=== PATIENT | female | born 1975 | race Caucasian/White ===

== ENCOUNTER 2025-03-23 10:00 | Outpatient (CLI) | payer OTHER, SELFPAY ==
[2025-03-23 12:14] LABS: Basophils Absolute Auto 0.1 K/mm3 (0.0-0.1); Basophils Percent Auto 0.4 % (0.2-1.2); Eosinophils Absolute Auto 0.1 K/mm3 (0-0.3); Eosinophils Percent Auto 0.7 % (0-4.4); Hematocrit 43.5 % (37.0-47.0); Hemoglobin 14.3 g/dL (12.0-15.0); Immature Granulocyte Absolute 0.07 K/mm3 (0.00-0.031); Immature Granulocyte Percent A 0.5 % (0-0.5); Lymphocytes Absolute Auto 5.14 K/mm3 (0.9-3.2); Lymphocytes Percent Auto 38.1 % (18.3-44.2); Mean Corpuscular HGB Conc 32.9 g/dl (32-36); Mean Corpuscular Hemoglobin 30.5 pg (26-34); Mean Corpuscular Volume 92.8 fl (80-100); Mean Platelet Volume 11.6 fl (7.4-10.4); Monocytes Absolute Auto 0.8 K/mm3 (0.1-0.6); Monocytes Percent Auto 5.6 % (2.6-8.5); Neutrophils Absolute Auto 7.4 K/mm3 (1.3-6.7); Neutrophils Percent Auto 54.7 % (45.5-73.1); Platelet Count Result 273 k/mm3 (150-375); Red Blood Count 4.69 M/mm3 (4.2-5.4); Red Cell Distribution Width 13.8 % (11.5-14.5); White Blood Count 13.5 K/mm3 (4.5-10.0)
[2025-03-23 12:39] LABS: Alanine Aminotransferase 26 U/L (6-35); Albumin Level 4.5 g/dL (3.5-5.1); Alkaline Phosphatase 82 U/L (38-126); Anion Gap 8 mmol/L (4-12); Aspartate Amino Transferase 56 U/L (14-36); Bilirubin,Total 0.4 mg/dL (0.2-1.3); Blood Urea Nitrogen 14 mg/dL (7-17); Calcium 9.7 mg/dL (8.4-10.2); Carbon Dioxide 25 mmol/L (22-30); Chloride 107 mmol/L (98-107); Cholesterol 234 mg/dL (0-200); Estimated Glomerular Filt Rate > 60; Glucose 99 mg/dL (65-110); HDL Direct 49 mg/dL; Potassium 4.4 mmol/L (3.4-5.0); Sodium 140 mmol/L (137-145); Total Protein 7.7 g/dL (6.3-8.2); Triglycerides 145 mg/dL (<150)
[2025-03-23 12:50] LABS: LDL Cholesterol Direct 138 mg/dL
[2025-03-23 13:37] LABS: Hemoglobin A1C 5.6 % (<5.7)
== END 2025-03-23 10:01 | disposition home or self-care (01) ==
LOC: ANHGOSHLAB 10:01
PROVIDERS: PCP Student in an Organized Health Care Education/Training Program; Visit Provider Student in an Organized Health Care Education/Training Program
DX: I10 Essential (primary) hypertension (principal); R35.0 Frequency of micturition; Z83.3 Family history of diabetes mellitus; Z13.220 Encounter for screening for lipoid disorders; Z13.29 Encounter for screening for other suspected endocrine disorder; Z13.0 Encounter for screening for diseases of the blood and blood-forming organs and certain disorders involving the immune mechanism
CPT/HCPCS: 36415; 80053; 80061; 83036; 84443; 85025

== ENCOUNTER 2025-03-23 10:10 | Outpatient (CLI) | payer OTHER, SELFPAY ==
--- NOTE | ~2025-03-23 | XR_ITS ---
AP view of the pelvis and AP and lateral views of the left hip Clinical history: Pain Findings: No acute fracture or dislocation is seen. There is severe degenerative change of the left h ip joint, joint space narrowing, with femoral head neck junction osteophyte formation, and reactive s clerosis. There is prominent subchondral cystic change at the left acetabulum. Right hip joint intact .. Soft tissues are unremarkable. Impression: Severe left hip joint osteoarthritis. Reviewed, dictated and finalized at location M. Impression: Severe left hip joint osteoarthritis.
== END 2025-03-23 10:11 | disposition home or self-care (01) ==
LOC: GOSHIMG 10:10
PROVIDERS: PCP Student in an Organized Health Care Education/Training Program; Visit Provider Student in an Organized Health Care Education/Training Program
DX: M16.12 Unilateral primary osteoarthritis, left hip (principal); G89.29 Other chronic pain
CPT/HCPCS: 73502

== ENCOUNTER 2025-04-10 00:46 | Day surgery (SDC) | payer OTHER, SELFPAY ==
[2025-03-26 12:31] VITALS: BMI 28.3
[2025-04-10 09:35] VITALS: BP 118/67; PULSE 81; RESP 16; TEMP 36.6; O2SAT 98; BMI 29.2
[2025-04-10] MEDS: LACTATED RINGERS 1,000 ML 150 ML IV CONT (09:44)
--- NOTE | 2025-04-10 09:50 | P.PNAN_ITS ---
Anes - Initial Pre Proc Eval Procedure: Operation Date: 04/10/25 10:30 Proposed Procedures p Screening Colonoscopy - Saud Mustafa DO Date/Time: 04/10/25 09:50 Surgeon: Saud Mustafa DO Pre Op Diagnosis: Neoplasm screening Patient Data Age: 50 Gender: F Height: 1.68 m Weight: 82 kg Last Vital Signs Temp 36.6 C 04/10/25 09:35 Pulse 81 04/10/25 09:35 Resp 16 04/10/25 09:35 BP 118/67 04/10/25 09:35 Pulse Ox 98 04/10/25 09:35 O2 Del Method Room Air 04/10/25 09:35 Allergies Allergy/AdvReac Type Severity Reaction Status Date / Time No Known Allergies Allergy Verified 04/10/25 09:34 Home Medications ?Medication ?Instructions ?Recorded ?Confirmed ?Type acetaminophen 325 mg capsule 325 mg PO Q6H PRN pain 03/23/25 03/27/25 History lisinopril 10 mg tablet 10 mg PO DAILY #30 tabs 03/23/25 04/10/25 Rx Patient hx anesthesia problems: none Family hx anesthesia problems: none Results Review: All pre-operative results and documents have been reviewed as part of the pre- operative evaluation. [facility] Surgical History Surgical History History of laparotomy Family History Family History Mother Cancer Depression Heart disease Father Cancer Diabetes mellitus Heart disease Hypertension Cerebrovascular accident Sibling Depression Diabetes mellitus Hypertension Heart disease Grandparent Cancer Heart disease Cerebrovascular accident Grandparent Cancer Grandparent Diabetes mellitus Grandparent Cerebrovascular accident Social History Social History Smoking status: Current every day smoker Tobacco type: cigarettes Alcohol intake: never Substance use: current Substance use type: does not use Do You Feel Safe in your Home?: Yes Lack of Transportation: YES Lack of Food: Never True Current Housing: I Have Housing Concerned About Future Housing: Decline to Answer Difficulty Paying Gas/Electric Bills: No Difficulty Paying for Meds: No Currently Unemployed: No Education: Associate Degree Difficulty w/ Childcare or Family Care: No Living arrangements: with family Anes - Eval Final PreProcedure Day of Procedure 04/10/25 09:50 Patient weight: overweight Heart: regular rate and rhythm Lungs: clear to auscultation Airway: Mallampati scale class II Neurological: alert and oriented Last oral intake: >/= 8 hours ASA classification: II Emergent: no Anesthetic plan: proceed Anesthesia type and monitoring: general GIVS and standard monitoring Results Review: All pre-operative results and documents have been reviewed as part of the pre- operative evaluation. Informed Consent: The patient's anesthetic plan and its attendant risks and benefits were discu ssed with the patient/family/POA. Questions were solicited and answers provided to the satisfaction of the patient/family/POA.
--- NOTE | 2025-04-10 10:23 | P.HP_ITS ---
H&P: HPI History of Present Illness Date/Time: 04/10/25 10:23 Chief Complaint: screening for colorectal cancer Narrative: this is a 50-year-old woman who presents for colonoscopy. This is her 1st colonoscopy. She denies any hematochezia or melena. She denies any family history colon cancer Review of Systems Review of Systems: All systems reviewed & are unremarkable except as noted in HPI and below Constitutional: Constitutional: Denies chills, Denies fever(s), Denies he adache(s) and Denies weight loss Eyes: Eyes: Denies change in vision ENT: Denies dizziness, Denies headache(s), Denies neck mass and Denies throat swelling Cardiovascular: Cardiovascular: Denies chest pain, Denies lightheadedness and Denies dyspnea Respiratory: Respiratory: Denies cough, Denies dyspnea and Denies wheezing Gastrointestinal: Gastrointestinal: Denies abdominal pain, Denies change in bowel habits, Denies nausea and Denies vomiting Genitourinary: Genitourinary: Denies hematuria and Denies dysuria Musculoskeletal: Musculoskeletal: Reports as per HPI Integumentary/Breasts: Skin/Breast: Reports as per HPI Neurologic: Denies dizziness and Denies headache(s) Allergic/Immunologic: Allergic/Immunologic: Denies throat swelling and Denies wheezing PMFSH Surgical History Surgical History History of laparotomy Family History Family History Mother Cancer Depression Heart disease Father Cancer Diabetes mellitus Heart disease Hypertension Cerebrovascular accident Sibling Depression Diabetes mellitus Hypertension Heart disease Grandparent Cancer Heart disease Cerebrovascular accident Grandparent Cancer Grandparent Diabetes mellitus Grandparent Cerebrovascular accident Social History Social History Smoking status: Current every day smoker Tobacco type: cigarettes Alcohol intake: never Substance use: current Substance use type: does not use Do You Feel Safe in your Home?: Yes Lack of Transportation: YES Lack of Food: Never True Current Housing: I Have Housing Concerned About Future Housing: Decline to Answer Difficulty Paying Gas/Electric Bills: No Difficulty Paying for Meds: No Currently Unemployed: No Education: Associate Degree Difficulty w/ Childcare or Family Care: No Living arrangements: with family Meds Home Medications and Allergies Home Medications ?Medication ?Instructions ?Recorded ?Confirmed ?Type acetaminophen 325 mg capsule 325 mg PO Q6H PRN pain 03/23/25 03/27/25 History lisinopril 10 mg tablet 10 mg PO DAILY #30 tabs 03/23/25 04/10/25 Rx Allergies Allergy/AdvReac Type Severity Reaction Status Date / Time No Known Allergies Allergy Verified 04/10/25 09:34 Vital Signs Vital Signs - 24 hr 04/10/25 09:35 Temperature 97.9 F Pulse Rate 81 Respiratory Rate 16 Blood Pressure 118/67 Pulse Oximetry 98 Oxygen Delivery Room Air Exam Const: General: no acute distress and alert Orientation/consciousness: patient oriented x3 HENMT: Head: normocephalic and atraumatic Ears: hearing grossly normal bilaterally Face/Nose/Sinus: Normal nares present Mouth: Yes Normal oral and palatal mucosa present Eyes: Periorbital: periorbital findings normal Sclera: sclerae normal EOM: EOMs intact bilaterally Neck: Neck: normal visual inspection, no lymphadenopathy and trachea midline Chest: Chest palpation & inspection: normal inspection of the chest Resp: Effort & Inspection: normal respiratory effort Auscultation: clear to auscultation bilaterally Cardio: Jugular venous distension: no JVD Rate: regular rate Rhythm: regular rhythm Heart sounds: S1 normal heart sound present and S2 normal heart sound present Peripheral pulses: Peripheral pulses 2+ throughout GI: Inspection: normal to inspection GI Palp: Yes Soft to palpation, No Tenderness to palpation present (GI), No Guarding due to palpation present (GI) and No Rebound tenderness present Percussion: Yes normal to percussion Auscultation: normal bowel sounds : General: Yes no CVA tenderness Back/Spine/Pelvis: Back: no CVA tenderness Neuro: General: patient oriented x3, no focal motor deficits and CN's II-XI intact bilaterally Cognition (Neuro): normal cognition Speech: normal speech Motor exam (neuro): 5/5 motor strength present throughout Extrem: General: capillary refill normal and no clubbing, cyanosis or edema Assessment and Plan Assessment and plan (1) Encounter for screening colonoscopy: Code(s): Z12.11 - Encounter for screening for malignant neoplasm of colon Status: Acute Assessment and Plan: I have recommended colonoscopy. I have discussed the procedure, risks, benefits, and alternatives. Questions were answered. Patient is agreeable to proceed.
--- NOTE | 2025-04-10 10:47 | S_PTH ---
PATIENT: Lianna Amezcua LOC: [facility] U#:[id number] AGE/SX: 50/F ROOM: RE04/10/[address]: Saud Mustafa DO : 1975 BED: DIS: 04/10/2025 SPEC #: [id number] RECD: 04/10/25 12:30 STATUS: [place] REQ #: [id number] AMANDA: 04/10/25 10:[address]: Saud Mustafa DEPT: [facility] Surgical RECD BY: Sirena Heart ENTERED: 04/10/25 12:31 SP TYPE: Surgical OTHR DR: Dominick Coronado APRN Tissues: A - Colon Polypectomy Procedures: Hematoxylin and Eosin Stain Gross and Microscopic Level 4
[2025-04-10 10:54] VITALS: BP 103/67; PULSE 82; RESP 21; O2SAT 99
[2025-04-10 11:04] VITALS: BP 104/69; PULSE 75; RESP 19; O2SAT 100
[2025-04-10 11:14] VITALS: BP 110/65; PULSE 69; RESP 20; O2SAT 100
== END 2025-04-10 11:18 | disposition home or self-care (01) ==
PROVIDERS: PCP Student in an Organized Health Care Education/Training Program; Visit Provider Surgery
PROC: 0DJD8ZZ Inspection of Lower Intestinal Tract, Via Natural or Artificial Opening Endoscopic (ICD-10-PCS; CPT 45378; principal; 2025-04-10 10:30)
DX: Z12.11 Encounter for screening for malignant neoplasm of colon (principal); D12.2 Benign neoplasm of ascending colon; K57.30 Diverticulosis of large intestine without perforation or abscess without bleeding; F17.210 Nicotine dependence, cigarettes, uncomplicated; Z98.890 Other specified postprocedural states; Z80.9 Family history of malignant neoplasm, unspecified; Z82.49 Family history of ischemic heart disease and other diseases of the circulatory system
CPT/HCPCS: 45380; 88305; J2003; J2704; J7120

== ENCOUNTER 2025-05-07 12:03 | Outpatient (CLI) | payer OTHER, SELFPAY ==
--- NOTE | 2025-05-07 12:20 | ECG_ITS ---
Test Date: 2025-05-07 12:27:48 Measurements Intervals [place] Rate: 68 P: 45 [place]: 149 QRS: 8 QRSD: 103 T: 23 QT: 382 QTc: 409 Interpretive Statements SINUS RHYTHM POSSIBLE LEFT ATRIAL ENLARGEMENT [-0.1mV P-WAVE IN V1/V2] LOW QRS VOLTAGE IN PRECORDIAL LEADS [QRS DEFLECTION < 1.0 mV IN CHEST LEADS] RSR' IN V1 OR V2, PROBABLY NORMAL VARIANT No previous ECG available for comparison Electronically Signed On 05-07-2025 15:22:11 CDT by Angel Kaur M.D.
[2025-05-07 12:35] LABS: Add Urine Microscopic? NO; Appearance Urine Clear (Clear); Glucose Urine UA Negative (Negative); Leukocyte Esterase Ur Negative LEU/UL (Negative); Nitrate Urine Negative (Negative); Specific Grav Ur 1.015 (1.001-1.035)
== END 2025-05-07 12:04 | disposition home or self-care (01) ==
LOC: ANHLAB 12:03
PROVIDERS: PCP Student in an Organized Health Care Education/Training Program; Visit Provider Orthopaedic Surgery
DX: I10 Essential (primary) hypertension (principal); R53.83 Other fatigue; F17.200 Nicotine dependence, unspecified, uncomplicated
CPT/HCPCS: 80307; 81003; 93005

== ENCOUNTER 2025-06-19 08:02 | Emergency (ER) | payer OTHER, SELFPAY ==
--- NOTE | ~2025-06-19 | XR_ITS ---
EXAM/PROCEDURE: XR chest 2V - 06/19/2025 8:27 CDT HISTORY: 50 years old Female with cough and wheezing x 3 days, no surgeries TECHNIQUE: Two view(s) of the chest. COMPARISON: None available. FINDINGS: LUNGS/ PLEURA: Mild airspace opacities in bilateral lung bases may represent atelectasis or scarring versus pneumonia in appropriate clinical settings. No large pleural effusions or pneumothorax. HEART/ MEDIASTINUM: Heart appears normal in size. BONES: Degenerative changes. OTHER: Visualized upper abdomen is unremarkable. IMPRESSION: Mild airspace opacities in bilateral lung bases may represent atelectasis or scarring versus pneumonia in appropriate clinical settings. Clinical correlation is recommended. Reviewed, dictated and finalized at location N. IMPRESSION: Mild airspace opacities in bilateral lung bases may represent atelectasis or sc arring versus pneumonia in appropriate clinical settings. Clinical correlation is recommended.
--- NOTE | 2025-06-19 08:06 | ED_ITS ---
HPI - URI/Sore Throat General Chief Complaint: Upper Respiratory Infection Stated Complaint: Cough/Congestion/Bodyaches Time Seen by Provider: 06/19/25 08:07 Source: patient, RN notes reviewed and old records reviewed Mode of arrival: ambulatory Limitations: no limitations History of Present Illness HPI Narrative: [age] year female presents to the [facility] with complaints of dry cough, nasal congestion, chest congestion, ears popping and body aches. Symptoms started on Wednesday, 3 days ago. Has taken Advil. Onset (ago): day(s) (3) Treatments prior to arrival: ibuprofen Related Data Allergies Allergy/AdvReac Type Severity Reaction Status Date / Time No Known Allergies Allergy Verified 06/19/25 08:15 Review of Systems Review of Systems: All systems reviewed & are unremarkable except as noted in HPI and below Constitutional: Constitutional: Reports as per HPI and Reports body ache(s) ENT: Reports as per HPI and Reports nasal congestion Cardiovascular: Cardiovascular: Reports no additional cardiovascular complaints, Denies chest pain and Denies dyspnea Respiratory: Respiratory: Reports as per HPI, Reports chest congestion, Reports cough and Denies dyspnea Musculoskeletal: Musculoskeletal: Reports no additional musculoskeletal complaints Integumentary/Breasts: Skin/Breast: Reports system reviewed and no additional complaints, except as docu PMF Surgical History Surgical History History of laparotomy Family History Family History Mother Cancer Depression Heart disease Father Cancer Diabetes mellitus Heart disease Hypertension Cerebrovascular accident Sibling Depression Diabetes mellitus Hypertension Heart disease Grandparent Cancer Heart disease Cerebrovascular accident Grandparent Cancer Grandparent Diabetes mellitus Grandparent Cerebrovascular accident Social History Social History (Updated 05/16/25 @ 08:06 by Jessica Hudson MA) Smoking packs per day: 1 Smoking cigarettes per day: 20.0 Years smoked: 22 Smoking pack-years: 22.00 Smoking status: Current every day smoker Tobacco type: cigarettes Alcohol intake: never Substance use: former Substance use type: does not use Do You Feel Safe in your Home?: Yes Lack of Transportation: YES Lack of Food: Never True Current Housing: I Have Housing Concerned About Future Housing: Decline to Answer Difficulty Paying Gas/Electric Bills: No Difficulty Paying for Meds: No Currently Unemployed: No Education: Associate Degree Difficulty w/ Childcare or Family Care: No Living arrangements: with family Spiritual care concerns: No Comments At the time of my signature, I reviewed and agree with the nursing past medical, surgical, social, and family history. There is no relevant family history pertinent to the patient complaint. Exam Const: General: cooperative, healthy appearing, comfortable, no acute distress, well developed, alert and well nourished Nutritional Appearance: well nourished Orientation/consciousness: patient oriented x3 Limitations: no limitations HENMT: Head: normal to inspection Ears: hearing grossly normal bilaterally, external ears normal and TM's normal bilaterally Face/Nose/Sinus: Normal external nose present, Normal nares present and No nasal discharge present Mouth: Yes Normal oral and palatal mucosa present, Yes lip normal, Yes tongue normal and Yes moist mucous membranes Throat: posterior oropharynx normal, uvula midline and no uvular edema Eyes: General: appearance normal, both eyes and all related structures Alignment and Position: alignment normal Neck: Neck: normal visual inspection, full ROM, no lymphadenopathy and no meningeal signs Chest: Chest palpation & inspection: normal inspection of the chest Resp: Effort & Inspection: normal respiratory effort and able to speak in complete sentences Auscultation: no crackles, no rales, rhonchi and wheezes Cardio: Rate: regular rate Skin: General skin exam: normal color and no rashes or lesions noted Neuro: General: patient oriented x3, gait normal, moves all extremities and no meningeal signs Cognition (Neuro): normal cognition Speech: normal speech Gait exam (Neuro): Normal gait present Extrem: General: normal to inspection, full ROM, capillary refill normal and normal gait Psych: Appearance: grossly normal and well kempt Mental Status: mental status grossly normal Speech and movement: Normal speech and movement present and Clear speech present Affect: normal affect Attitude: cooperative Course Course Level of Care: Express Care Visit Vital Signs Vital signs: Vital Signs Temperature 97.2 F L 06/19/25 08:16 Pulse Rate 89 06/19/25 08:16 Respiratory Rate 06/19/25 08:16 Blood Pressure 121/84 06/19/25 08:16 Pulse Oximetry 97 06/19/25 08:16 Temperature 97.2 F L 06/19/25 08:16 Pulse Rate 89 06/19/25 08:16 Respiratory Rate 16 06/19/25 08:16 Blood Pressure 121/84 06/19/25 08:16 Pulse Oximetry 97 06/19/25 08:16 Reviewed MDM - URI/Sore Throat MDM Narrative Medical decision making narrative: Patient sitting in exam room. Patient is nontoxic, vitals are stable. Patient presents with 3 day history of URI symptoms. Course, rhonchi noted with expiratory wheezing. Flu and COVID are negative Patient's x-ray shows a probability of pneumonia, atelectasis Patient appropriate for outpatient treatment with antibiotics and close follow- up Discharge instructions reviewed with patient, as well as provided in writing per nursing staff. The instructions also include specific and strict return/GO TO THE ER as well as f/u information. All questions have been answered, and the patient deny any further questions with discharge and discharge plan. Some parts of this dictation were generated by voice recognition software and may contain typographical and/or grammatical inaccuracies. Differential Diagnosis Differential diagnosis: Likely upper respiratory infection, otitis media, sinusitis, viral infection, bronchitis and influenza Lab Data Labs: Lab Results 06/19/25 Range/Units 08:32 POC Influenza A Ag Negative (Negative) POC Influenza B Ag Negative (Negative) POC SARS CoV-2 Ag Negative (Negative) Reviewed Imaging Data Radiologist's impression: EXAM/PROCEDURE: XR chest 2V - 06/19/2025 8:27 CDT HISTORY: 50 years old Female with cough and wheezing x 3 days, no surgeries TECHNIQUE: Two view(s) of the chest. COMPARISON: None available. FINDINGS: LUNGS/ PLEURA: Mild airspace opacities in bilateral lung bases may represent atelectasis or scarring versus pneumonia in appropriate clinical settings. No large pleural effusions or pneumothorax. HEART/ MEDIASTINUM: Heart appears normal in size. BONES: Degenerative changes. OTHER: Visualized upper abdomen is unremarkable. IMPRESSION: Mild airspace opacities in bilateral lung bases may represent atelectasis or scarring versus pneumonia in appropriate clinical settings. Clinical correlation is recommended. Critical Care Time Critical Care Time Critical Care Time: No Discharge Plan Discharge Clinical Impression: Pneumonia Qualifiers: Pneumonia type: due to unspecified organism Laterality: bilateral Lung location: lower lobe of lung Qualified Code(s): J18.9 - Pneumonia, unspecified organism Patient Disposition: Home Condition: Stable Instructions: Pneumonia (ED) Additional Instructions: Your chest x-ray shows a possibility of pneumonia, you have been prescribed an antibiotic. Please take the antibiotic and use the inhaler as prescribed Your rapid COVID test were negative Your rapid flu test was negative It is very important to treat your symptoms. Drink plenty of water, Gatorade, Pedialyte, ice pops or Jell-O. -Alternate Tylenol and Motrin per package directions for fever or pain. You can alternate every 4 hours -Antihistamine medication such as Zyrtec/Claritin/Kadie during the day can help improve symptoms. -doing daily nasal irrigations can help relieve pressure your sinuses. Things like a Neti pot -Use Flonase twice a day for 5 days then daily to help reduce the inflammation and dry up your sinuses. -You can also use Mucinex. Be sure to drink plenty of water with this medication at least 8 ounces with every dose and it is important to drink 8 to 10 glasses of water per day. Water is a natural decongestant -Eat and drink things that are easy to swallow, like tea or soup, or popsicles. -Oral rinses such as: Salt water gargles and/or may use topical anesthetic (eg. Chloraseptic spray) or lozenges to relieve dryness or throat pain). -Frequent hand washing or hand pipe stress engineer is one of the best ways to prevent spread of infection. -Using a vaporizer or humidifier at night will also help thin secretions and help with coughing up phlegm. -Follow up with primary care provider in 7-10 days if condition is not improving - For new or worsening symptoms go directly to the nearest ER Patient Language: Swedish Prescriptions: New doxycycline monohydrate 100 mg tablet 100 mg PO BID Qty: 14 0RF albuterol sulfate [Ventolin HFA] 90 mcg/actuation HFA aerosol inhaler 2 puff inhalation QID PRN (Reason: shortness of breath or wheezing) Qty: 6.7 0RF (DME) Aerochamber MV Spacer See Rx Instructions .Route Qty: 1 0RF Rx Instructions: As directed No Action lisinopril 10 mg tablet 20 mg PO DAILY Qty: 60 2RF atorvastatin [Lipitor] 10 mg tablet 10 mg PO QHS Qty: 90 1RF celecoxib [Celebrex] 200 mg capsule 200 mg PO BID PRN (Reason: pain) Qty: 60 1RF Follow-up/Referrals: Dominick Coronado, MEDICINE ASSISTANT [Primary Care Provider, Family Practice] - 1 Week Clinical Impression: Pneumonia Stand Alone Forms: Work/School Release IP Time of Disposition: 08:49
[2025-06-19 08:16] VITALS: BP 121/84; PULSE 89; RESP 16; TEMP 36.2; O2SAT 97
[2025-06-19 08:34] LABS: EDCOVIDSCREEN Negative (Negative); EDINFLUASCREEN Negative (Negative); EDINFLUBSCREEN Negative (Negative)
== END 2025-06-19 09:01 | disposition home or self-care (01) ==
PROVIDERS: Emergency Provider Nurse Practitioner; PCP Student in an Organized Health Care Education/Training Program
DX: J18.9 Pneumonia, unspecified organism (principal); F17.210 Nicotine dependence, cigarettes, uncomplicated; Z20.822 Contact with and (suspected) exposure to COVID-19
CPT/HCPCS: 71046; 87426; 87804; 99213; G0463